=== PATIENT | male | born 1955 | race Caucasian/White ===

== ENCOUNTER 2020-08-16 09:20 | Outpatient (CLI) | payer OTHER, SELFPAY ==
--- NOTE | ~2020-08-16 | CT_ITS ---
EXAMINATION: CT brain wo con EXAM DATE: 08/16/2020 10:03 INDICATION: R51.9 - Headache. Symptoms for months. TECHNIQUE: Spiral CT of the head was performed without contrast. Axial, coronal and sagittal images were reviewed. The dose-length product (DLP) for this examination was 605.33 mGy-cm. The exposure w as tailored according to patient size, and iterative reconstruction (ASIR) was used as additional dos e reduction technique. There is no prior study for comparison. FINDINGS: There is no acute intraparenchymal hemorrhage. No evidence of intraparenchymal brain mass lesion. No evidence of acute infarction. There is no mass effect or midline shift. The ventricles are normal in size. There are no extra-axial collections. There are no acute calvarial fractures. T he orbits are unremarkable. Soft tissue is unremarkable. The visualized sinuses and mastoid air adam ls are well aerated. IMPRESSION: 1. Unremarkable head CT examination. Reviewed, dictated and finalized at location A. SITE SERVICES SPECIALIST
--- NOTE | ~2020-08-16 | XR_ITS ---
EXAMINATION: XR cervical spine 4-5V EXAM DATE: 08/16/2020 10:22 INDICATION: R51.9 - Headache, unspecified TECHNIQUE: Cervical spine frontal, lateral, and open-mouth odontoid projections. Additional lateral flexion and lateral extension projections obtained. There are no prior studies for comparison. FINDINGS: There is moderate disc disease C4-5, more than C5-6 and C6-7. Straightening of normal cerv ical lordosis could be positional or spasm. There is 2 mm anterolisthesis C3 on C4 on the flexion aung ges which normalizes on the neutral and extension projections. There is mild to moderate cervical art hropathy. The odontoid process is intact. The lateral masses of C1 line up with C2. Prevertebral sof t tissue and pre-dens space are within normal limits. IMPRESSION: Moderate mid cervical disc disease. Mild to moderate arthropathy. Reviewed, dictated and finalized at location A. [facility] RECEPTIONIST
== END 2020-08-16 09:21 | disposition home or self-care (01) ==
PROVIDERS: PCP Internal Medicine; Visit Provider Internal Medicine
DX: M47.812 Spondylosis without myelopathy or radiculopathy, cervical region (principal)
CPT/HCPCS: 70450; 72050

== ENCOUNTER → 2020-09-01 13:40 | Outpatient (CLI) | payer OTHER, SELFPAY ==
--- NOTE | ~2020-09-01 | MR_ITS ---
EXAMINATION: MR brain/brain stem wo/w con DATE: 09/01/2020 14:42 INDICATION: Headache. TECHNIQUE: Magnetic resonance imaging (MRI) of the brain and brainstem was performed without and with 15 mL MultiHance intravenous contrast. Sequences included sagittal and axial T1-weighted FSE, axial diffusion-weighted FS EPI, axial T2*-weighted GRE, axial T2-weighted FLAIR Propeller, and axial T2-we ighted Propeller. Postcontrast sequences included axial and coronal T1-weighted FSE. Apparent diffusi on coefficient (ADC) maps were created. COMPARISON: Head CT 08/16/2020 FINDINGS: There are scattered areas of nonspecific increased T2-weighted signal intensity in the cere bral white matter, which is within normal limits for the patient's age. There is no intracranial hemo rrhage, acute infarction, or abnormal intracranial mass lesion. The ventricles are normal in size. Th ere is mild mucosal thickening in the paranasal sinuses. The mastoid air cells are normal. The orbits are normal. IMPRESSION: 1. Normal aging brain. Reviewed, dictated and finalized at location A. ER CHAINSTITCH IMPRESSION: 1. Normal aging brain.
[2020-09-01 14:25] LABS: Estimated Glomerular Filt Rate > 60
== END ==
PROVIDERS: PCP Internal Medicine; Visit Provider Internal Medicine
DX: R51.9 Headache, unspecified (principal)
CPT/HCPCS: 70553; A9577

== ENCOUNTER → 2020-11-21 08:00 | Outpatient (CLI) | payer OTHER, SELFPAY ==
--- NOTE | ~2020-11-21 | MR_ITS ---
EXAMINATION: MR cervical spine wo con DATE: 11/21/2020 08:41 INDICATION: Headache TECHNIQUE: Magnetic resonance imaging (MRI) of the cervical spine was performed without intravenous c ontrast. Sequences included sagittal T2-weighted FSE, sagittal T2-weighted FS FSE, sagittal T1-weight ed FSE, axial MERGE and axial T2-weighted FSE. COMPARISON: Cervical spine radiographs dated 08/16/2020 FINDINGS: Unchanged straightening of the normal cervical lordosis. 1-2 mm retrolisthesis C6 on C7. The prior 2 mm anterolisthesis of C7 on T1 is reduced to neutral. Vertebral body heights are normal. Bone marrow signal intensity is normal. Moderate disc height loss at C4-C5 and C5-C6 and mild disc height loss at C6-C7. Cord signal intensity is normal. Cervical soft tissues are unremarkable. The following disc l evels are specifically discussed: C2-C3: The disc does not extend beyond the endplate margin. There is no uncovertebral joint osteoarth ritis. There is no facet joint osteoarthritis. There is no neural foraminal stenosis. There is no nikkie tral canal stenosis. C3-C4: Disc is mildly bulging with superimposed annular fissure. There is mild bilateral uncovertebra l joint osteoarthritis. There is mild right facet joint osteoarthritis. There is no neural foraminal stenosis. There is no central canal stenosis. C4-C5: Disc is bulging with annular fissure. There is mild left and moderate right uncovertebral join t osteoarthritis. There is mild bilateral facet joint osteoarthritis. There is mild bilateral neural foraminal stenosis. There is mild central canal stenosis. C5-C6: The disc does not extend beyond the endplate margin. There is mild left and moderate right unc overtebral joint osteoarthritis. There is minimal bilateral facet joint osteoarthritis. There is mild right neural foraminal stenosis. There is no central canal stenosis. C6-C7: Disc is bulging. There is moderate bilateral uncovertebral joint osteoarthritis. There is mild right facet joint osteoarthritis. There is mild bilateral neural foraminal stenosis. There is mild c entral canal stenosis. C7-T1: Disc is mildly bulging. There is no uncovertebral joint osteoarthritis. There is no facet join t osteoarthritis. There is no neural foraminal stenosis. There is no central canal stenosis. IMPRESSION: 1. Moderate cervical spondylosis. Reviewed, dictated and finalized at location A.
== END ==
PROVIDERS: PCP Internal Medicine; Visit Provider Internal Medicine
DX: M47.812 Spondylosis without myelopathy or radiculopathy, cervical region (principal); M48.02 Spinal stenosis, cervical region; R51.9 Headache, unspecified
CPT/HCPCS: 72141

== ENCOUNTER 2021-07-02 10:44 | Outpatient (CLI) | payer MEDICARE, OTHER, SELFPAY | END 2021-07-02 10:45 | disposition home or self-care (01) | LOC: ANHAUDIO 10:45 | PROVIDERS: PCP Internal Medicine; Visit Provider Otolaryngology | DX: H91.92 Unspecified hearing loss, left ear (principal) | CPT/HCPCS: 92557; 92567 ==

== ENCOUNTER 2022-02-19 15:56 | Emergency (ER) | payer MEDICARE, OTHER, SELFPAY ==
--- NOTE | ~2022-02-19 | CT_ITS ---
EXAMINATION: CT brain wo con DATE: 02/19/2022 16:23 INDICATION: head injury . TECHNIQUE: Computed tomography (CT) of the head was performed without intravenous contrast. The mA wa s adjusted according to patient size. Iterative reconstruction technique was employed. The dose-lengt h product was 605.33 mGy-cm. COMPARISON: 08/16/2020 FINDINGS: 2 mm right posterior parietal subdural collection overlying the hemisphere. 10 mm right and 5 mm left isodense subdural collections. No hydrocephalus, mass, or herniation. No acute ischemic infarct. Unremarkable dural venous sinus attenuation. No acute osseous abnormality. The aerated spaces are clear. Atherosclerotic intracranial calcifications. 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 Bilateral chronic subdural hemor rhages. Results reported telephonically to Veronika Ann PA-C by Dr. Gates at 4:29 PM on 02/19/2022. Reviewed, dictated and finalized at location K. 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 Bilateral chronic subdural hemorrhages. Results reported telephonically to Veronika Ann PA-C by Dr. Gates at 4:29 PM on 02/19/2022.
--- NOTE | ~2022-02-19 | CT_ITS ---
EXAMINATION: CT cervical spine wo con DATE: 02/19/2022 16:58 INDICATION: head injury TECHNIQUE: Computed tomography (CT) of the cervical spine was performed without intravenous contrast. Automated exposure control and iterative reconstruction technique were employed. The dose-length pro duct was 455.23 mGy-cm. COMPARISON: None FINDINGS: Vertebral Body Alignment: Intact. Craniocervical and atlantoaxial alignment: Moderate degenerative change. Alignment intact. Osseous structures/fracture: No evidence of a lytic or blastic process in the visualized spine. No e vidence of acute fracture. Cervical soft tissues: The paraspinal soft tissues planes are maintained. Biapical pleural scarring Degenerative changes: Degenerative changes, without severe neural foraminal or central canal narrowin g. IMPRESSION: No acute fracture or traumatic malalignment in the cervical spine. Reviewed, dictated and finalized at location K.
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
[2022-02-19 15:57] VITALS: BP 135/63; PULSE 82; RESP 14; TEMP 36.6; O2SAT 98
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
[2022-02-19 16:45] VITALS: BP 137/82; PULSE 80; RESP 18; O2SAT 94
[2022-02-19 16:47] LABS: Basophils Absolute Auto 0.1 K/mm3 (0.0-0.1); Basophils Percent Auto 0.6 % (0.2-1.2); Eosinophils Absolute Auto 0.1 K/mm3 (0-0.3); Eosinophils Percent Auto 1.1 % (0-4.4); Hematocrit 46.4 % (42.0-52.0); Hemoglobin 14.9 g/dL (14.0-18.0); Immature Granulocyte Absolute 0.05 K/mm3 (0.00-0.031); Immature Granulocyte Percent A 0.5 % (0-0.5); Lymphocytes Absolute Auto 1.04 K/mm3 (0.9-3.2); Lymphocytes Percent Auto 9.5 % (18.3-44.2); Mean Corpuscular HGB Conc 32.1 g/dl (32-36); Mean Corpuscular Hemoglobin 29.3 pg (26-34); Mean Corpuscular Volume 91.3 fl (80-100); Mean Platelet Volume 10.1 fl (7.4-10.4); Monocytes Percent Auto 9.4 % (2.6-8.5); Neutrophils Absolute Auto 8.6 K/mm3 (1.3-6.7); Neutrophils Percent Auto 78.9 % (45.5-73.1); Platelet Count Result 168 k/mm3 (150-375); Red Blood Count 5.08 M/mm3 (4.6-6.20); Red Cell Distribution Width 12.7 % (11.5-14.5); White Blood Count 10.9 K/mm3 (4.5-10.0)
--- NOTE | 2022-02-19 16:54 | PC.NURSE ---
pt placed in C-collar.
[2022-02-19 16:56] LABS: Alanine Aminotransferase 22 U/L (6-50); Albumin Level 4.4 g/dL (3.5-5.1); Alkaline Phosphatase 93 U/L (38-126); Anion Gap 10 mmol/L (8-16); Aspartate Amino Transferase 29 U/L (17-59); Bilirubin,Total 0.7 mg/dL (0.2-1.3); Blood Urea Nitrogen 23 mg/dL (9-20); Calcium 9.5 mg/dL (8.4-10.2); Carbon Dioxide 26 mmol/L (22-30); Chloride 105 mmol/L (98-107); Estimated CRCL calculation 71 ml/min; Estimated Glomerular Filt Rate > 60; Glucose 106 mg/dL (65-110); Sodium 141 mmol/L (137-145)
[2022-02-19 16:57] LABS: INR 1.1; Partial Thromboplastin Time 25.5 SECONDS (22.3-36.8); Prothrombin Time 13.7 Seconds (11.1-14.7)
[2022-02-19 17:30] VITALS: PULSE 77; RESP 20
--- NOTE | 2022-02-19 17:30 | PC.NURSE ---
report called to EARNESTINE Urbina at [facility] ems ETA 1 hour for lights and sirens.
[2022-02-19 17:31] VITALS: BP 134/85; PULSE 76; RESP 26
[2022-02-19 18:40] VITALS: BP 135/76; PULSE 72; RESP 17; O2SAT 98
== END 2022-02-19 18:43 | disposition short-term general hospital (02) ==
PROVIDERS: Physician Assistant; Emergency Provider Family Medicine; PCP Internal Medicine
DX: S06.5X0A Traumatic subdural hemorrhage without loss of consciousness, initial encounter (principal); I62.03 Nontraumatic chronic subdural hemorrhage; N40.0 Benign prostatic hyperplasia without lower urinary tract symptoms; K21.9 Gastro-esophageal reflux disease without esophagitis; Z87.442 Personal history of urinary calculi; Z86.010 Personal history of colon polyps; Z86.16 Personal history of COVID-19; E55.9 Vitamin D deficiency, unspecified; V18.4XXA Pedal cycle driver injured in noncollision transport accident in traffic accident, initial encounter; Y93.55 Activity, bike riding
CPT/HCPCS: 36415; 70450; 72125; 73030; 80053; 85025; 85610; 85730; 99291; L0140

== ENCOUNTER 2023-06-05 00:38 | Day surgery (SDC) | payer MEDICARE, OTHER, SELFPAY ==
[2023-05-21 14:03] VITALS: BMI 24.5
--- NOTE | 2023-06-04 17:19 | PM.HPGS ---
History of Present Illness History of Present Illness Consent: Risks, benefits, and alternatives have been discussed and questions answered. Patient agrees to proceed with procedure. Chief complaint: hx of colon polyps Narrative: Andrea Linn is a 68 year old male Referred for colon cancer screening. Six years ago he underwent colonoscopy with removal of 1 tubular adenoma. Review of Systems Review of Systems: All systems reviewed & are unremarkable except as noted in HPI and below PMFSH Past Medical History Medical History Abnormal finding of blood chemistry Benign essential hypertension BMI 22.0-22.9, adult BMI 23.0-23.9, adult BMI 24.0-24.9, adult BPH (benign prostatic hyperplasia) Encounter for Medicare annual wellness exam Encounter for preventive health examination Encounter for routine adult health examination without abnormal findings Encounter for special screening examination for neoplasm of prostate Environmental and seasonal allergies Essential hypertension Facial cellulitis Family history of diabetes mellitus FHx: brain aneurysm Follow up GERD (gastroesophageal reflux disease) Hearing loss History of kidney stones Hx of colonic polyps Myopia Nocturia Occipital headache On rat exterminator drug therapy Onychomycosis Personal history of COVID-19 Rising PSA level Seasonal allergies Swelling of left eyelid Urinary urgency Vitamin D deficiency Surgical History Surgical History History of total replacement of both shoulder joints Hx of sinus surgery x5 Family History Family History Father Hypertension Mother Family history of malignant neoplasm of ovary Social History Social History Smoking status: Never smoker Second hand tobacco smoke exposure: Yes Alcohol intake: current Drinks per week: 2 Substance use type: former substance user Lack of Transportation: No Lack of Food: Never True Current Housing: I Have Housing Concerned About Future Housing: No Difficulty Paying Gas/Electric Bills: No Difficulty Paying for Meds: No Currently Unemployed: No Education: Bachelor's Degree Difficulty w/ Childcare or Family Care: No Living arrangements: with family Gender identity (if verbalized by the patient): Male Spiritual care concerns: No Meds Home Medications and Allergies Home Medications Medication Instructions Recorded Confirmed Type cetirizine 10 mg tablet (Zyrtec) 10 mg PO DAILY #90 tabs 01/20/20 06/05/23 Rx cholecalciferol (vitamin D3) 25 25 mcg PO DAILY 06/06/20 06/05/23 History mcg (1,000 unit) capsule zinc 50 mg tablet 50 mg PO DAILY 06/06/20 06/05/23 History ascorbic acid (vitamin C) 500 mg 500 mg PO DAILY 08/28/20 06/05/23 History capsule famotidine 20 mg tablet (Pepcid) 20 mg PO DAILY 12/20/21 06/05/23 History amlodipine 5 mg tablet See Rx Instructions .Route 11/06/22 06/05/23 Rx .COMPLEX #135 tabs montelukast 10 mg tablet See Rx Instructions .Route 04/07/23 06/05/23 Rx .COMPLEX #90 tabs tamsulosin 0.4 mg capsule See Rx Instructions .Route 04/25/23 06/05/23 Rx .COMPLEX #30 caps Allergies Allergy/AdvReac Type Severity Reaction Status Date / Time No Known Allergies Allergy Verified 06/05/23 10:15 Exam Resp: Auscultation: clear to auscultation bilaterally Cardio: Rate: regular rate Rhythm: regular rhythm GI: GI Palp: Yes Soft to palpation and No Tenderness to palpation present (GI) Assessment and Plan Assessment and plan (1) Colon cancer screening: Code(s): Z12.11 - Encounter for screening for malignant neoplasm of colon Status: Acute Assessment and Plan: Colonoscopy with possible biopsy or polypectomy or cautery or injection of substances.
[2023-06-05 10:05] VITALS: BP 131/71; PULSE 62; RESP 16; TEMP 36.3; O2SAT 100; BMI 23.3
--- NOTE | 2023-06-05 10:20 | WPDANESEPPF ---
Anes - Initial Pre Proc Eval Procedure: Operation Date: 06/05/23 11:30 Proposed Procedures p Colonoscopy - Samir Haley MD Date/Time: 06/05/23 10:20 Surgeon: Samir Haley MD Pre Op Diagnosis: hx of colon polyps Patient Data Age: 68 Gender: M Height: 1.83 m Weight: 82 kg Allergies Allergy/AdvReac Type Severity Reaction Status Date / Time No Known Allergies Allergy Verified 06/05/23 10:15 Home Medications Medication Instructions Recorded Confirmed Type cetirizine 10 mg tablet (Zyrtec) 10 mg PO DAILY #90 tabs 01/20/20 06/05/23 Rx cholecalciferol (vitamin D3) 25 25 mcg PO DAILY 06/06/20 06/05/23 History mcg (1,000 unit) capsule zinc 50 mg tablet 50 mg PO DAILY 06/06/20 06/05/23 History ascorbic acid (vitamin C) 500 mg 500 mg PO DAILY 08/28/20 06/05/23 History capsule famotidine 20 mg tablet (Pepcid) 20 mg PO DAILY 12/20/21 06/05/23 History amlodipine 5 mg tablet See Rx Instructions .Route 11/06/22 06/05/23 Rx .COMPLEX #135 tabs montelukast 10 mg tablet See Rx Instructions .Route 04/07/23 06/05/23 Rx .COMPLEX #90 tabs tamsulosin 0.4 mg capsule See Rx Instructions .Route 04/25/23 06/05/23 Rx .COMPLEX #30 caps Patient hx anesthesia problems: none Family hx anesthesia problems: none Results Review: All pre-operative results and documents have been reviewed as part of the pre-operative evaluation. [facility] Past Medical History Medical History Abnormal finding of blood chemistry Benign essential hypertension BMI 22.0-22.9, adult BMI 23.0-23.9, adult BMI 24.0-24.9, adult BPH (benign prostatic hyperplasia) Encounter for Medicare annual wellness exam Encounter for preventive health examination Encounter for routine adult health examination without abnormal findings Encounter for special screening examination for neoplasm of prostate Environmental and seasonal allergies Essential hypertension Facial cellulitis Family history of diabetes mellitus FHx: brain aneurysm Follow up GERD (gastroesophageal reflux disease) Hearing loss History of kidney stones Hx of colonic polyps Myopia Nocturia Occipital headache On [employer] drug therapy Onychomycosis Personal history of COVID-19 Rising PSA level Seasonal allergies Swelling of left eyelid Urinary urgency Vitamin D deficiency Surgical History Surgical History History of total replacement of both shoulder joints Hx of sinus surgery x5 Family History Family History Father Hypertension Mother Family history of malignant neoplasm of ovary Social History Social History Smoking status: Never smoker Second hand tobacco smoke exposure: Yes Alcohol intake: current Drinks per week: 2 Substance use type: former substance user Lack of Transportation: No Lack of Food: Never True Current Housing: I Have Housing Concerned About Future Housing: No Difficulty Paying Gas/Electric Bills: No Difficulty Paying for Meds: No Currently Unemployed: No Education: Bachelor's Degree Difficulty w/ Childcare or Family Care: No Living arrangements: with family Gender identity (if verbalized by the patient): Male Spiritual care concerns: No Anes - Eval Final PreProcedure Day of Procedure 06/05/23 10:20 Patient weight: normal Heart: regular rate and rhythm Lungs: clear to auscultation Airway: Mallampati scale class II Neurological: alert and oriented Last oral intake: >/= 8 hours ASA classification: II Emergent: no Anesthetic plan: proceed Anesthesia type and monitoring: general GIVS and standard monitoring Results Review: All pre-operative results and documents have been reviewed as part of the pre-operative evaluation. Informed Consent: The patient's anesthetic plan and its
[2023-06-05] MEDS: LACTATED RINGERS 1,000 ML 150 ML IV CONT (10:22)
[2023-06-05 10:59] VITALS: BP 100/70; PULSE 66; RESP 20; O2SAT 97
[2023-06-05 11:09] VITALS: BP 120/76; PULSE 58; RESP 20; O2SAT 99
[2023-06-05 11:19] VITALS: BP 124/80; PULSE 52; RESP 20; O2SAT 99
== END 2023-06-05 11:32 | disposition home or self-care (01) ==
PROVIDERS: PCP Internal Medicine; Visit Provider Internal Medicine Gastroenterology
PROC: 0DJD8ZZ Inspection of Lower Intestinal Tract, Via Natural or Artificial Opening Endoscopic (ICD-10-PCS; CPT 45378; principal; 2023-06-05 11:30)
DX: Z12.11 Encounter for screening for malignant neoplasm of colon (principal); K57.30 Diverticulosis of large intestine without perforation or abscess without bleeding; I10 Essential (primary) hypertension; N40.0 Benign prostatic hyperplasia without lower urinary tract symptoms; K21.9 Gastro-esophageal reflux disease without esophagitis; E55.9 Vitamin D deficiency, unspecified; F10.90 Alcohol use, unspecified, uncomplicated; J30.2 Other seasonal allergic rhinitis; F19.11 Other psychoactive substance abuse, in remission; Z86.010 Personal history of colon polyps; Z82.49 Family history of ischemic heart disease and other diseases of the circulatory system; Z79.899 Other long term (current) drug therapy
CPT/HCPCS: G0105; J2704; J7120

== ENCOUNTER 2024-09-27 12:20 | Outpatient (CLI) | payer MEDICARE, OTHER, SELFPAY ==
--- NOTE | ~2024-09-27 | XR_ITS ---
Right foot Technique: AP and lateral views were obtained. Clinical History: Pain Findings: No acute fracture or dislocation is seen. Chronic, healed fracture deformity of the fifth m etatarsal shaft present, with element of malunion.. Joint spaces are preserved without erosive or deg enerative change. Soft tissues are unremarkable. Impression: Chronic, healed fracture deformity of fifth metatarsal shaft width element of malunion. No acute abnormality. Reviewed, dictated and finalized at location M. Impression: Chronic, healed fracture deformity of fifth metatarsal shaft width element of kmi french. No acute abnormality.
--- OUTSIDE RECORDS SUMMARY | 2024-09-27 14:16 | XMS_ITS | Encounter Summary ---
Author Organization [employer] Address [address] [place] [address] Care Team Providers Care Supervisor Shuttle Preparation Name Role Phone Mars Barahona MD Primary Care Provider Encounter Details Date Type Department Care Team (Latest Contact Info) Description 09/10/1999 Outpatient Historical [facility] Benny Ramsey MD [address] [id number] Deviated nasal septum (Primary Dx) Social History Tobacco Use Types Packs/Day Years Used Date Smoking Tobacco: Never Assessed Sex and Gender Information Value Date Recorded Sex Assigned at Not on file Legal Sex Male 2:43 AM [employer] Gender Identity Not on file Sexual Orientation Not on file documented as of this encounter Plan of Treatment Not on file documented as of this encounter Visit Diagnoses Diagnosis Deviated nasal septum- Primary documented in this encounter Care Teams Supervisor Shuttle Preparation Relationship Specialty Start Date End Date Mars Barahona MD PCP - General 07/07/15 documented as of this encounter
--- OUTSIDE RECORDS SUMMARY | 2024-09-27 14:16 | XMS_ITS | Clinical Summary ---
Author Organization [facility] [employer] Address [address] [address] Care Team Providers Care Pipe Production Worker Name Role Phone Mars Barahona MD Primary Care Provider [phone] Source Comments [facility] [employer],non-owned Affiliates and Associated Physician Practices is amultiple site organization consisting of ambulatory clinics and hospital sitesin [place], [place], [place] and [place]. This disclosure is being madepursuant to the Care Everywhere program and may not contain all information available regarding this patient. Last updated [employer] Allergies No known active allergies Medications * Be aware that medications may not be up to date on this document. Alwaysverify current medications with the patient. Medication Sig Dispensed Refills Start Date End Date Status Cetirizine HCl (ZYRTEC PO) Active Fexofenadine HCl (DIANA PO) Active Active Problems No known active problems Social History Tobacco Use Types Packs/Day Years Used Date Smoking Tobacco: Never Smokeless Tobacco: Never Alcohol Use Standard Drinks/Week Comments Yes 0 (1 standard drink = 0.6 oz pur e alcohol) moderate Sex and Gender Information Value Date Recorded Sex Assigned at Not on file Gender Identity Not on file Sexual Orientation Not on file Last Filed Vital Signs Vital Sign Reading Time Taken Comments Blood Pressure 126/82 01/18/2018 9:21 AM CDT Pulse 75 01/18/2018 9:21 AM CDT Temperature 36.2 C (97.2 F) 01/18/2018 9:21 AM CDT Respiratory Rate 16 01/18/2018 9:21 AM CDT Oxygen Saturation 98% 01/18/2018 9:21 AM CDT Inhaled Oxygen Concentration - - Weight 81.6 kg (180 lb) 01/18/2018 9:21 AM CDT Height 182.9 cm (6') 01/18/2018 9:21 AM CDT Body Mass Index 24.41 01/18/2018 9:21 AM CDT Plan of Treatment Health Maintenance Due Date Last Done Comments COLOGUARD (AGES 45-75) - COL ON CA SCREENING 1956 COLON MONITORING 1956 COLONOSCOPY - COLON CA SCREENING 1956 CT COLONOGRAPHY - COLON CA SCREENING 1956 Colorectal Cancer Screening 1956 FIT - COLON CA SCREENING 1956 FLEX SIG - COLON CA SCREENING 1956 LIPID TESTING 1956 MEDICARE AWV 12 MONTHS 1956 HEPATITIS C SCREENING 05/03/1974 DTAP/TDAP/TD VACCINES (1 - Tdap) 1975 PNEUMOCOCCAL VACCINE 50+ (1 of 1 - PCV) 2006 ZOSTER VACCINE (1 of 2) 2006 COVID-19 VACCINE (1 - 2023-2 5 season) 2024 INFLUENZA VACCINE (#1) 2024 DEPRESSION SCREENING 07/21/2024 Respiratory Syncytial Virus (RSV) Vaccine Pt: or over 60 yrs (1 - 1-dose 75+ series) 2031 HEPATITIS B VACCINE Aged Out No longe r eligible based on patient's age to complete this topic HIB VACCINE Aged Out No longer eligi ble based on patient's age to complete this topic HPV VACCINE Aged Out No longer eligi ble based on patient's age to complete this topic MENINGOCOCCAL (Group B) VACCINE Aged Out No longer eligible based on patient's age to complete this topic MENINGOCOCCAL VACCINE Aged Out No frank misa eligible based on patient's age to complete this topic Care Teams Pipe Production Worker Relationship Specialty Start Date End Date Mars Barahona MD PCP - General 05/14/18
--- OUTSIDE RECORDS SUMMARY | 2024-09-27 14:16 | XMS_ITS | Referral Summary ---
Author Organization [facility] Address [address] [place] [address] Care Team Providers Care Api Architect Name Role Phone Obed Mcgowan MD Primary Care Provider [phone] Allergies No known active allergies Medications amLODIPine (NORVASC) 5 mg tablet 2 8 Active cetirizine (ZyrTEC) 10 mg tablet Active acetaminophen (TYLENOL) 325 mg tablet Take 2 tablets (650 mg total) by mouth every 4 (four) hours as needed for pain 30 tablet 2 Active azelastine (ASTELIN) 137 mcg (0.1 %) nasal spray Administer 2 sprays into each nostril 2 (two) times a day 2 Active montelukast (SINGULAIR) 10 mg tablet Take 1 tablet (10 mg total) by mouth every evening 2 Active tamsulosin (FLOMAX) 0.4 mg extended release capsule Take 1 capsule (0.4 mg total) by mouth daily 2 Active Active Problems Problem Noted Date Diagnosed Date Acute on chronic intracranial subdural hematoma 02/19/2022 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 2-4 times a month 06/05/2022 Q2: How many drinks containi ng alcohol do you have on a typical day when you are drinking? 1 or 2 06/05/2022 Q3: How often do you have si x or more drinks on one occasion? 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 Gender Identity Not on file Sexual Orientation Not on file Occupation Industry Job Start Date Job End Date Retired Not on file Not on file Not on file Last Filed Vital Signs Vital Sign Reading Time Taken Comments Blood Pressure 133/79 06/05/2022 1:19 PM PESTICIDE CONTROL INSPECTOR Pulse 66 06/05/2022 1:19 PM PESTICIDE CONTROL INSPECTOR Temperature 37.3 C (99.1 F) 02/20/2022 2:00 PM CDT Respiratory Rate 22 02/20/2022 2:00 PM CDT Oxygen Saturation 94% 02/20/2022 2:00 PM CDT Inhaled Oxygen Concentration - - Weight 80.7 kg (178 lb) 06/05/2022 1:19 PM PESTICIDE CONTROL INSPECTOR Height 182.9 cm (6') 06/05/2022 1:19 PM PESTICIDE CONTROL INSPECTOR Body Mass Index 24.14 06/05/2022 1:19 PM PESTICIDE CONTROL INSPECTOR Plan of Treatment Not on file Insurance MEDICARE [facility] [place] [id number] COMM[employer]ITY [employer] MEDICARE MEDICARE [facility] Care Teams Api Architect Relationship Specialty Start Date End Date Obed Mcgowan MD [address] [facility] [place] [id number] PCP - General Internal Medicine 03/27/21
--- OUTSIDE RECORDS SUMMARY | 2024-09-27 14:16 | XMS_ITS | Referral Summary ---
Author Organization [facility] Address [address] [place] [address] Care Team Providers Care Caseworker Protective Services Name Role Phone Mars Barahona MD Primary Care Provider [phone] Source Comments [facility],non-owned Affiliates and Associated Physician Practices is amultiple site organization consisting of ambulatory clinics and hospital sitesin [place], [place], [place] and [place]. This disclosure is being madepursuant to the Care Everywhere program and may not contain all information available regarding this patient. Last updated 18.[employer] [facility] Allergies No known active allergies Medications * [...] 01/18/2018 9:21 AM CDT Plan of Treatment Not on file Care Teams Caseworker Protective Services Relationship Specialty Start Date End Date Mars Barahona MD PCP - General 05/14/18
--- OUTSIDE RECORDS SUMMARY | 2024-09-27 14:16 | XMS_ITS | Patient Health Summary ---
Author Organization [facility] Address [address] [place] [address] Care Team Providers Care Dusting And Brushing Machine Operator Name Role Phone Mars Barahona MD Primary Care Provider [phone] Note from [facility],non-owned Affiliates and Associated Physician Practices is amultiple site organization consisting of ambulatory clinics and hospital sitesin [place], [place], [place] and [place]. This disclosure is being madepursuant to the Care Everywhere program and may not contain all information available regarding this patient. Last updated 18.[email or web address] Allergies No known active allergies Medications * Be aware that medications may not be up to date on this document. Alwaysverify current medications with the patient. * Cetirizine HCl (ZYRTEC PO) * Fexofenadine HCl (DIANA PO) Active Problems No known active problems Social [...] Mass Index 24.41 01/18/2018 9:21 AM CDT Procedures * DERMATOPATHOLOGY(Performed 10/15/2022) * DERMATOPATHOLOGY(Performed 03/08/2020) * DERMATOPATHOLOGY(Performed 05/13/2018) * DERMATOPATHOLOGY(Performed 09/15/2013) Results * DERMATOPATHOLOGY (10/15/2022 12:00 AM CDT) Only the most recent of4 resultswithin the time period is included. Case Report Dermatopathology Report Case: [id number] Authorizing Provider: Campbell Mir MD Collected: 10/15/2022 12:00 AM Ordering Location: [facility] DermPath Lab Received: 10/17/2022 06:12 AM Pathologist: Tara Nolasco MD Specimen: Skin, left med upper chest below clavicle 2:53 PM CDT DERMATOPATHOLOGY LABORATORY Final Diagnosis Specimen A. SKIN, left med upper chest below clavicle: SEBORRHEIC KERATOSIS, INFLAMED (L82.0) NOT PRESENT AT SAMPLED MARGIN 2:53 PM CDT DERMATOPATHOLOGY LABORATORY Clinical History R/O BCC 2:53 PM CDT DERMATOPATHOLOGY LABORATORY Gross Description Specimen A: Received is one formalin filled container labeled with the patients name and designated left med upper chest below clavicle. The specimen consists of a shave removal measuring 9x7x1 mm. Jar 0. 2:53 PM CDT DERMATOPATHOLOGY LABORATORY Microscopic Description Specimen A. SKIN, left med upper chest below clavicle: There is hyperkeratosis, parakeratosis, papillomatosis, and acanthosis of the epidermis. There is a lymphohistiocytic infiltrate within the papillary dermis that is focally lichenoid. This lesion is not present at the sampled margin of the specimen. 3 2:53 PM CDT DERMATOPATHOLOGY LABORATORY Disclaimer An external and internal positive and negative controls are appropriate for the histochemical, immunohistochemical and immunofluorescence stain(s) in this case (if any), except where stated explicitly. The performance characteristics of the stain(s) cited in this report were developed and its performance characteristic determined by the Dermatopathology Laboratory at [facility], directed by Dr. Bryon Knowles. These tests need not be, and therefore are not, approved by the [place] Food and Drug Administration. The tests are used for clinical purposes. Billing Codes Specimen Charges Stain Charges 30006 1 3 2:53 PM CDT DERMATOPATHOLOGY LABORATORY Embedded Images 3 2:53 PM CDT DERMATOPATHOLOGY LABORATORY Pathology/Cytolog y TISSUE SPECIMEN FROM SKIN / Unknown 10/15/2022 10/17/2022 6:12 AM CDT Campbell Mir MD LAB - PATHOLOGY/CYTO LOGY ORDERABLES DERMATOPATHOLOGY LABORATORY [facility] - Department of Dermatology [facility] Medicine [address] [place] [address], [address] [phone] Care Teams Dusting And Brushing Machine Operator Relationship Specialty Start Date End Date Mars Barahona MD PCP - General 05/14/18
--- OUTSIDE RECORDS SUMMARY | 2024-09-27 14:16 | XMS_ITS | Clinical Summary ---
Author Organization [facility] Address [address] [place] [address] Phone Care Team Providers Care New Car Inspector Name Role Phone Mars Barahona MD Primary Care Provider Allergies No known active allergies Medications meloxicam (MOBIC) 7.5 mg Oral Tab Take 7.5 mg by mouth daily. Active oxycodone-aceta minophen (PERCOCET) 5-325 mg Oral Tab Take 1-2 Tabs by mouth every 6 hours as needed for Pain. You cannot drive, operate heavy machinery, drink alcohol or take other pain medications while you are taking this medication. 20 Tab None 9 Active ondansetron (ZOFRAN ODT) [address] 1 Tab inside cheek every 8 hours as needed. 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 Gender Identity Not on file Sexual Orientation Not on file Last Filed Vital Signs Vital Sign Reading Time Taken Comments Blood Pressure 154/83 03/30/2009 7:44 PM CDT Pulse 66 03/30/2009 7:44 PM CDT Temperature 36.4 C (97.5 F) 03/30/2009 5:26 PM CDT Respiratory Rate 17 03/30/2009 7:44 PM CDT Oxygen Saturation 98% 03/30/2009 7:44 PM CDT Inhaled Oxygen Concentration - - Weight 78 kg (172 lb) 03/30/2009 5:26 PM CDT Height 182.9 cm (6') 03/30/2009 5:26 PM CDT Body Mass Index 23.33 03/30/2009 5:26 PM CDT Plan of Treatment Health Maintenance Due Date Last Done Comments DTAP/TDAP/TD VACCINES (1 - Tdap) 1975 COLORECTAL SCREENING 2001 Colorectal Cancer Screening 2001 FIT-DNA Q 3 years 2001 FIT/FOBT Q 1 year 2001 Flex Sig/CT Colonography Q 5 years 2001 PNEUMOCOCCAL VACCINE 50+ YEARS (1 of 1 - PCV) 05/07/20 06 ZOSTER VACCINE (1 of 2) 2006 INFLUENZA VACCINE (#1) 2024 RSV VACCINE (60+ or ) (1 - 1-dose 75+ series) 2031 Care Teams New Car Inspector Relationship Specialty Start Date End Date Mars Barahona MD PCP - General 07/07/15
--- OUTSIDE RECORDS SUMMARY | 2024-09-27 14:16 | XMS_ITS | Encounter Summary ---
Author Organization [facility] Address [address] [address] Care Team Providers Care Deboner Name Role Phone Mars Barahona MD Primary Care Provider [phone] Encounter Details Date Type Department Care Team (Late st Contact Info) Description 10/17/2022 Lab Requisition [facility] DermPath Lab [address] [place] [id number] Campbell Mir MD [address] [place] [address] Social History Tobacco Use Types Packs/Day Years [...] on file documented as of this encounter Procedures Procedure Name Priority Date/Time Associated Diagnosis Comments DERMATOPATHOLOGY Routine 10/15/2022 12:0 0 AM CDT documented in this encounter Results * DERMATOPATHOLOGY (10/15/2022 12:00 AM CDT) Case Report Dermatopathology Report Case: [id number] Authorizing Provider: Campbell Mir MD Collected: 10/15/2022 12:00 AM Ordering Location: [facility] DermPath Lab Received: 10/17/2022 06:12 AM Pathologist: Tara Nolasco MD Specimen: Skin, left med upper chest below clavicle 3 2:53 PM CDT DERMATOPATHOLOGY LABORATORY Final Diagnosis Specimen A. SKIN, left med upper chest below clavicle: SEBORRHEIC KERATOSIS, INFLAMED (L82.0) NOT PRESENT AT SAMPLED MARGIN 3 2:53 PM T DERMATOPATHOLOGY LABORATORY Clinical History R/O BCC 3 2:53 PM T DERMATOPATHOLOGY LABORATORY Gross Description Specimen A: Received is one formalin filled container labeled with the patients name and designated left med upper chest below clavicle. The specimen consists of a shave removal measuring 9x7x1 mm. Jar 0. 3 2:53 PM T DERMATOPATHOLOGY LABORATORY Microscopic Description Specimen A. SKIN, left med upper chest below clavicle: There is hyperkeratosis, parakeratosis, papillomatosis, and acanthosis of the epidermis. There is a lymphohistiocytic infiltrate within the papillary dermis that is focally lichenoid. This lesion is not present at the sampled margin of the specimen. 3 2:53 PM T DERMATOPATHOLOGY LABORATORY Disclaimer An external and internal positive and negative controls are appropriate for the histochemical, immunohistochemical and immunofluorescence stain(s) in this case (if any), except where stated explicitly. The performance characteristics of the stain(s) cited in this report were developed and its performance characteristic determined by the Dermatopathology Laboratory at [facility], directed by Dr. Bryon Knowles. These tests need not be, and therefore are not, approved by the [place] Food and Drug Administration. The tests are used for clinical purposes. Billing Codes Specimen Charges Stain Charges 04171 1 3 2:53 PM CDT DERMATOPATHOLOGY LABORATORY Embedded Images 3 2:53 PM CDT DERMATOPATHOLOGY LABORATORY Pathology/Cytolog y TISSUE SPECIMEN FROM SKIN / Unknown 10/15/2022 10/17/2022 6:12 AM CDT Campbell Mir MD LAB - PATHOLOGY/CYTO LOGY ORDERABLES DERMATOPATHOLOGY LABORATORY [facility] - Department of Dermatology [address], [address] [phone] documented in this encounter Visit Diagnoses Not on filedocumented in this encounter Care Teams Deboner Relationship Specialty Start Date End Date Mars Barahona MD PCP - General 05/14/18 documented as of this encounter
--- OUTSIDE RECORDS SUMMARY | 2024-09-27 14:16 | XMS_ITS | Continuity of Care Document ---
Author Organization [facility] Address [address] [place] [address] Phone Care Team Providers Care Tool Room Attendant Name Role Phone Emigdio Reyes MD Unavailable Unavailable Allergies, Adverse Reactions, Alerts Substance Reaction Status Criticality No Known Allergies Active No Inform ation Medications Medication Instructions Dosage Effective Dates (start - stop) Status Comments AMLODIPINE BESYLATE (unknown strength) Not Available - Active MELOXICAM (unknown strength) Not Available - Active SINGULAIR (unknown strength) Not Available - Active AZELASTINE HCL (unknown strength) Not Available - Active ZYRTEC (unknown strength) Not Available - Active AMLODIPINE BESILATE (unknown strength) Not Available - Active MELOXICAM (unknown strength) Not Available - Active SINGULAIR (unknown strength) Not Available - Active ZYRTEC (unknown strength) Not Available - Active ASTEPRO (unknown strength) Not Available - Active FLOVENT HFA (unknown strength) Not Available - Active ATROVENT HFA (unknown strength) Not Available - Active Procedures Procedure Date OFFICE/OUTPATIENT VISIT EST POSTOP FOLLOW-UP VISIT POSTOP FOLLOW-UP VISIT OFFICE/OUTPATIENT VISIT NEW Advance Directives Directive Yes / No Effective Date File Name No Information Encounters Encounter Description Practice Location Reason(s) For Visit Diagnoses Date Provider Providers Copied on Encounter OFFICE/OUTPAT IENT VISIT EST [facility], [address], [place], [address], [place] tel:[phone] [facility] 5th MT fx (chief complaint) Displaced fracture of fifth metatarsal bone of left foot with routine healing, subsequent encounter 6 Amy Beal. [address] [place], [place], [id number] . tel: [phone] [facility], [address], [place], [address], [place] tel:[phone] [facility] Displaced fracture of fifth metatarsal bone of left foot with routine healing, subsequent encounter 6 Amy Beal. [address] [place], [place], [id number] . tel: [phone] [facility], [address] [place] [address] [address], [place], [address], [place] tel:[phone] [facility] Follow Up of L foot (chief complaint) Displaced fracture of fifth metatarsal bone of left foot with routine healing, subsequent encounter 0 5 Shoe Noemi. [address], [place], [place], [id number] . tel: [phone] OFFICE/OUTPAT IENT VISIT [facility], [address] [place] [address] [address], [place], [address], [place] tel:[phone] [facility] LEFT FOOT (chief complaint) Closed displaced fracture of fifth metatarsal bone of left foot, initial encounter 5 Shoe Noemi. [address], [place], [place], [id number] . tel: [phone] [facility], [address], [place], [address], [place] tel:[phone] [facility] Osteoarthros is, unspecified whether generalized or localized, involving shoulder region 2 Amparo Sanchez. [address], [place], [place], [id number] . tel: [phone] Referring Provider: Mars Lim, [address] [facility] [facility] [address], [place], [address] . tel:[phone] Family History Family Member Type Diagnosis Age At Onset Problem (finding) Family history of malignant neoplasm of ovary Brother Problem (finding) Alive and well Payers Payer name Insurance type Covered libertarian ID Eliane blanco(s) [employer] Access [employer] E2 OT [id number] Social History Type Description Quantity Date Captured Comments Alcohol Use Details Unknown Caffeine Use Details Unknown Tobacco Use Status No Information Smoking Status No Information Sex Male Chief Complaint And Reason For Visit From encounter dated '09/26/2015 08:10'. L 5th MT fx (chief complaint) Reason For Referral Reason For Referral No Information Plan Of Treatment Date Type Action Status Referral Ordered: RADEX FOOT COMPL MINIMUM 3 VIEWS RT ordered Referral Ordered: RADEX FOOT COMPL MINIMUM 3 VIEWS LT ordered Referral Ordered: RADEX ELISHA COMPL MINIMUM 2 VIEWS Bilateral ordered History Of Present Illness Encounter Date Complaint History Of Prese nt Illness L 5th MT fx Follow Up of L foot LEFT FOOT Functional Status Date Functional Assessmen t No Information Instructions Date Instruction Additional Infor mation Apply ice as tolerated. Related to Displaced fracture of fifth metatarsal bone of left foot with routine healing, subsequent encounter Elevate extremity above heart. R elated to Displaced fracture of fifth metatarsal bone of left foot with routine healing, subsequent encounter elevate limb above level of the heart Related to Displaced fracture of fifth metatarsal bone of left foot with routine healing, subsequent encounter Elevate extremity above heart. R elated to Closed displaced fracture of fifth metatarsal bone of left foot, initial encounter Immobilize as directed. Related to Closed displaced fracture of fifth metatarsal bone of left foot, initial encounter Assessments Type Assessment Date assessment Displaced fracture o f fifth metatarsal bone of left foot with routine healing, subsequent encounter Patient Care Teams Name Effective Dates (start - stop) Status Members No Information
--- OUTSIDE RECORDS SUMMARY | 2024-09-27 14:16 | XMS_ITS | Encounter Summary ---
Author Organization [facility] Address [address] [place] [address] Care Team Providers Care Daytime Babysitter Name Role Phone Mars Barahona MD Primary Care Provider [phone] Encounter Details Date Type Department Care Team (Late st Contact Info) Description 03/09/2020 Lab Requisition [facility] DermPath Lab [address] [place] [id number] Campbell Mir MD [address] [place] [id number] Social History Tobacco Use Types Packs/Day Years [...] Priority Date/Time Associated Diagnosis Comments DERMATOPATHOLOGY Routine 03/08/2020 12:0 0 AM CDT documented in this encounter Results * DERMATOPATHOLOGY (03/08/2020 12:00 AM CDT) Case Report Dermatopathology Report Case: [id number] Authorizing Provider: Campbell Mir MD Collected: 03/08/2020 12:00 AM Ordering Location: [facility] DermPath Lab Received: 03/09/2020 12:00 PM Pathologist: Marcelo Knowles MD Specimen: Skin, right forehead 0 10:56 AM CDT DERMATOPATHOLOGY LABORATORY Final Diagnosis Specimen A. SKIN, right forehead: ACTINIC KERATOSIS, ACANTHOLYTIC TYPE WITH FOLLICULAR EXTENSION (L57.0) SEBACEOUS HYPERPLASIA (L73.8) 0 10:56 AM T DERMATOPATHOLOGY LABORATORY Clinical History R/O BCC. 0 10:56 AM T DERMATOPATHOLOGY LABORATORY Gross Description Specimen A: Received is one formalin filled container labeled with the patient's name and designated right forehead. The specimen consists of a shave biopsy measuring 0q7h3ye. Jar 0. 0 10:56 AM T DERMATOPATHOLOGY LABORATORY Microscopic Description Specimen A. SKIN, right forehead: There is focal parakeratosis. The lower half of the epidermis shows disorderly maturation of keratinocytes with nuclear pleomorphism. Focally there is a suprabasilar cleft with acantholytic cells. There are prominent sebaceous gland lobules surrounding a dilated hair follicle. 0 10:56 AM CDT DERMATOPATHOLOGY LABORATORY Disclaimer An external and internal positive and negative controls are appropriate for the histochemical, immunohistochemical and immunofluorescence stain(s) in this case (if any), except where stated explicitly. The performance characteristics of the stain(s) cited in this report were developed and its performance characteristic determined by the Dermatopathology Laboratory at [facility], directed by Dr. Bryon Knowles. These tests need not be, and therefore are not, approved by the [place] Food and Drug Administration. The tests are used for clinical purposes. Billing Codes Specimen Charges Stain Charges 21338 1 0 10:56 AM CDT DERMATOPATHOLOGY LABORATORY Embedded Images 0 10:56 AM CDT DERMATOPATHOLOGY LABORATORY Pathology/Cytolog y TISSUE SPECIMEN FROM SKIN / Unknown 03/08/2020 03/09/2020 12:00 PM CDT Campbell Mir MD LAB - PATHOLOGY/CYTO LOGY ORDERABLES DERMATOPATHOLOGY LABORATORY [facility] - Department of Dermatology Plant Maintenance Manager [place]/[address] [phone] documented in this encounter Visit Diagnoses Not on filedocumented in this encounter Care Teams Daytime Babysitter Relationship Specialty Start Date End Date Mars Barahona MD PCP - General 05/14/18 documented as of this encounter
--- OUTSIDE RECORDS SUMMARY | 2024-09-27 14:16 | XMS_ITS | Encounter Summary ---
Author Organization [facility] Address [address] [place] [address] Care Team Providers Care Car Detailer Name Role Phone Mars Barahona MD Primary Care Provider [phone] Encounter Details Date Type Department Care Team (Late st Contact Info) Description 05/14/2018 Lab Requisition [facility] D[facility] [address] [place] [id number] Campbell Mir MD [address] [place] [id number] Social History Tobacco Use Types Packs/Day Years [...] Priority Date/Time Associated Diagnosis Comments DERMATOPATHOLOGY Routine 05/13/2018 12:0 0 AM CDT documented in this encounter Results * DERMATOPATHOLOGY (05/13/2018 12:00 AM CDT) Case Report Dermatopathology Report Case: [id number] Authorizing Provider: Campbell Mir MD Collected: 05/13/2018 12:00 AM Pathologist: Radha Simpson MD Received: 05/14/2018 01:24 PM Specimens: A) - Skin, right mid deltoid B) - Skin, left upper back C) - Skin, right upper back 6:[address] [facility] DERMATOPATHOLOGY LABORATORY Final Diagnosis Specimen A. 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 SKIN, left upper back: SPONGIOTIC DERMATITIS WITH RARE EOSINOPHILS AND DERMAL HEMORRHAGE (L30.8) (see microscopic description and comment) Specimen C. SKIN, right upper back: SPONGIOTIC DERMATITIS WITH RARE EOSINOPHILS AND DERMAL HEMORRHAGE (L30.8) (see microscopic description and comment) 6:[address] [facility] DERMATOPATHOLOGY [facility]ORATORY Clinical History A-C: R/O eczema vs other rash. 6:[address] [facility] DERMATOPATHOLOGY LABORATORY Gross Description Specimen A: Received is one formalin filled container labeled with the patient's name and designated right mid deltoid. The specimen consists of a punch biopsy measuring [id number], bisected. Jar 0. Specimen B: Received is one formalin filled container labeled with the patient's name and designated left upper back. The specimen consists of a punch biopsy measuring [id number], bisected. Jar 0. Specimen C: Received is one formalin filled container labeled with the patient's name and designated right upper back. The specimen consists of a punch biopsy measuring [id number], bisected. Jar 0. 6:[address] [facility] DERMATOPATHOLOGY [facility]ORATORY Microscopic Description Specimen A. SKIN, right mid deltoid: There is focal parakeratosis and spongiosis. In the dermis there is a mainly superficial perivascular lymphohistiocytic inflammatory infiltrate with a few eosinophils and extravasated erythrocytes. Grocott's methenamine silver (GMS) stain fails to highlight fungal elements in the available sections. COMMENT: The histological differential diagnosis includes a contact dermatitis, an eczematous drug eruption, and less likely the urticarial phase of bullous pemphigoid. Pityriasis rosea was also considered given the presence of extravasated erythrocytes. Clinicopathologic correlation is recommended. Specimen B. SKIN, left upper back: There is focal parakeratosis and spongiosis with rare scattered dyskeratotic keratinocytes within the epidermis. In the dermis there is a mainly superficial perivascular lymphohistiocytic inflammatory infiltrate with rare eosinophils and extravasated erythrocytes. There is bacteria noted within a hair follicle. Grocott's methenamine silver (GMS) stain fails to highlight fungal elements in the available sections. COMMENT: See comment for Specimen A. Specimen C. SKIN, right upper back: There is focal parakeratosis and spongiosis with rare scattered dyskeratotic keratinocytes within the epidermis. In the dermis there is a mainly superficial perivascular lymphohistiocytic inflammatory infiltrate with rare eosinophils and extravasated erythrocytes. There is bacteria and yeast forms consistent with Pityrosporum spp. noted within a hair follicle. Grocott's methenamine silver (GMS) stain fails to highlight fungal elements in the available sections, though the tissue block had cut out of the hair follicle on the stained section. COMMENT: See comment for Specimen A. 8 6:12 PM CDT DERMATOPATHOLOGY LABORATORY Disclaimer An external and internal positive and negative controls are appropriate for the histochemical, immunohistochemical and immunofluorescence stain(s) in this case (if any), except where stated explicitly. The performance characteristics of the stain(s) cited in this report were developed and its performance characteristic determined by the Dermatopathology Laboratory at [facility]. These tests need not be, and therefore are not, approved by the [place] Food and Drug Administration. The tests are used for clinical purposes. Billing Codes Specimen Charges Stain Charges 91431 51074 78475 1 1 1 26261 07490 06757 1 1 1 8 6:12 PM CDT DERMATOPATHOLOGY LABORATORY Embedded Images 8 6:12 PM CDT DERMATOPATHOLOGY LABORATORY Pathology/Cytology TISSUE SPECIMEN FROM SKIN / Unknown 05/13/2018 05/14/2018 1:24 PM CDT Miscellaneous samples (specimen) TISSUE SPECIMEN FROM SKIN / Unknown 05/13/2018 05/14/2018 1:24 PM CDT Miscellaneous samples (specimen) TISSUE SPECIMEN FROM SKIN / Unknown 05/13/2018 05/14/2018 1:24 PM CDT Campbell Mir MD LAB - PATHOLOGY/CYTO LOGY ORDERABLES DERMATOPATHOLOGY LABORATORY [facility] - Department of Dermatology [address] [place] [address], 5th Floor [facility] [address] [phone] documented in this encounter Visit Diagnoses Not on filedocumented in this encounter Care Teams Car Detailer Relationship Specialty Start Date End Date Mars Barahona MD PCP - General 05/14/18 documented as of this encounter
--- OUTSIDE RECORDS SUMMARY | 2024-09-27 14:16 | XMS_ITS | Continuity of Care Document ---
Author Organization [facility] Address [address] [place] [address] [address] [place] [address] Phone Care Team Providers Care Training Instructor Name Role Phone Keenan Manning DO Unavailable Unavailable Advance Directives Directive Yes / No Effective Date File Name No Information Encounters Encounter Description Practice Location Reason(s) For Visit Diagnoses Date Provider Providers Copied on [facility] [id number] [place] [address] [address], [place], [place], [id number], [place] tel:[phone] [facility] No Information Nigel Baca. [address] [facility], [place], [address], [place]. tel: [phone] Family History Family Member Type Diagnosis Age At Onset No Information Payers Payer name Insurance type Covered green party ID Authoriza tion(s) No Information Social History Type Description Quantity Date Captured Comments Sex Male Smoking Status No Information Chief Complaint And Reason For Visit No Information Reason For Referral Reason For Referral No Information History Of Present Illness Encounter Date Complaint History Of Prese nt Illness No Information Functional Status Date Functional Assessmen t No Information Instructions Date Instruction Additional Infor mation No Information Assessments Type Assessment Date No Information Patient Care Teams Name Effective Dates (start - stop) Status Members No Information
--- OUTSIDE RECORDS SUMMARY | 2024-09-27 14:16 | XMS_ITS | Encounter Summary ---
Author Organization [facility] Address 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
--- OUTSIDE RECORDS SUMMARY | 2024-09-27 14:16 | XMS_ITS | Clinical Summary ---
Author Organization [facility] Address [address] [place] [address] Care Team Providers Care Fire Support Specialist Name Role Phone Obed Mcgowan MD Primary Care Provider Allergies No known active allergies Medications amLODIPine [...] 06/01/2015,06/01/2014 Influenza, Unspecified 2017 Td, adsorbed 04/06/2001 Medical History Medical History Date Comments Hypertension Family History Medical History Relation Name Comments Hypertension Father Family history of hypertension - (Added by TW Conv) Cancer Mother Family history of malignant neoplasm - (Added by TW Conv) Scoliosis Mother Family history of scoliosis - (Added by TW Conv) Hypertension Paternal Grandmother Relation Name Status Comments Father Mother Paternal Grandmother Social History Tobacco Use Types Packs/Day Years [...] on file 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 Gender Identity Not on file Sexual Orientation Not on file Occupation Industry Job Start Date Job End Date Retired Not on file Not on file Not on file Obstetrics History Last Filed Vital Signs Vital Sign Reading Time Taken Comments Blood Pressure 133/79 06/05/2022 1:19 PM ASSISTANT MERCHANDISER Pulse 66 06/05/2022 1:19 PM ASSISTANT MERCHANDISER Temperature 37.3 C (99.1 F) 02/20/2022 2:00 PM CDT Respiratory Rate 22 02/20/2022 2:00 PM CDT Oxygen Saturation 94% 02/20/2022 2:00 PM CDT Inhaled Oxygen Concentration - - Weight 80.7 kg (178 lb) 06/05/2022 1:19 PM ASSISTANT MERCHANDISER Height 182.9 cm (6') 06/05/2022 1:19 PM ASSISTANT MERCHANDISER Body Mass Index 24.14 06/05/2022 1:19 PM ASSISTANT MERCHANDISER Plan of Treatment Health Maintenance Due Date Last Done Comments Colon Cancer Screening-Colonoscopy 1955 Depression Screening 1955 Hepatitis C Screening 1955 Prostate Cancer Screening-PSA 1956 Hepatitis B Screening 1974 DTaP/Tdap/Td Vaccine (1 - Tdap) 04/07/2001 1 Pneumococcal vaccine 65+ (1 of 1 - PCV) 2006 Zoster Vaccine (1 of 2) 2006 Abdominal Aortic Aneurysm (A AA) Screen 2021 Well Visit 65+ 2021 Fall Risk Assessment 02/20/2023 02/20/2022 Covid-19 Vaccine ( season) 03/21/202405/2021 Influenza Vaccine (#1) 2024 7, 06/01/2015, 06/01/2014 Insurance MEDICARE [facility] [employer]IG[employer] MEDICARE MEDICARE [facility] Care Teams Fire Support Specialist Relationship Specialty Start Date End Date Obed Mcgowan MD [address] [place] [address] PCP - General Internal Medicine 03/27/21
== END 2024-09-27 12:21 | disposition home or self-care (01) ==
PROVIDERS: PCP Internal Medicine; Visit Provider Internal Medicine
DX: S92.352P Displaced fracture of fifth metatarsal bone, left foot, subsequent encounter for fracture with malunion (principal)
CPT/HCPCS: 73620